=== PATIENT | male | born 1985 | race African-American/Black ===

== ENCOUNTER 2021-02-28 00:48 | Emergency (ER) | payer SELFPAY ==
[~2021-02-28] VITALS: Ht 177.8 cm; Wt 70.3 kg
--- NOTE | 2021-02-28 01:15 | NUR ---
Pt came in today for rt. ear pressure, states it feels like his hearing is dulled in that ear and that there is fluid in his ear.
--- NOTE | 2021-02-28 01:30 | NUR ---
Pts. right ear irrigated with 50 cc warm saline, 1/2 inch clump of impacted cerumen drained from ear. Small amount of blood was present on anterior inner ear. After ear was irrigated, the drainage from ear was clear and the eardrum was pink. Pt reports relief of pressure and hearing immediately improved. Pt denies pain.
--- NOTE | 2021-02-28 01:41 | NUR ---
Patient discharged to home in stable condition. Written and verbal after care instructions given. Patient verbalizes understanding of instructions. Stressed follow up or return to ER for worsening s/s. Pt walked with steady gait and took all belongings. Pt denies dizziness, vision changes. Pt. reports his hearing has improved. No signs of distress.
[2021-02-28 01:49] VITALS: BP 126/75
== END 2021-02-28 01:40 | disposition home or self-care (01) ==
LOC: ER 00:54
DX: H61.21 Impacted cerumen, right ear (principal); Z82.49 Family history of ischemic heart disease and other diseases of the circulatory system
CPT/HCPCS: A4663